=== PATIENT | female | born 1960 | race Native Hawaiian/Other Pacific Islander ===

== ENCOUNTER 2018-04-08 11:23 | Outpatient (CLI) | payer OTHER | END 2018-04-08 21:24 | disposition home or self-care (01) | LOC: MAMMO 11:23 | DX: Z12.31 Encounter for screening mammogram for malignant neoplasm of breast (principal) ==

== ENCOUNTER 2018-08-06 10:28 | Outpatient (CLI) | payer OTHER | END 2018-08-06 20:06 | disposition home or self-care (01) | LOC: RAD 10:28 | DX: M54.42 Lumbago with sciatica, left side (principal) ==

== ENCOUNTER 2019-05-04 14:27 | Outpatient (CLI) | payer OTHER | END 2019-05-04 21:11 | disposition home or self-care (01) | LOC: MAMMO 14:27 | DX: Z12.31 Encounter for screening mammogram for malignant neoplasm of breast (principal) ==

== ENCOUNTER 2021-06-20 10:26 | Outpatient (CLI) | payer OTHER | END 2021-06-20 19:11 | disposition home or self-care (01) | LOC: MAMMO 10:26 | PROVIDERS: ATTEND Obstetrics & Gynecology | DX: Z12.31 Encounter for screening mammogram for malignant neoplasm of breast (principal) ==